=== PATIENT | female | born 1960 | race Caucasian/White ===

== ENCOUNTER → 2017-06-21 | Outpatient (CLI) | payer MEDICAID, OTHER | LOC: BMCIMAGING 14:17 | PROVIDERS: ATTEND Family Medicine | DX: Z13.820 Encounter for screening for osteoporosis (principal); M85.80 Other specified disorders of bone density and structure, unspecified site ==

== ENCOUNTER → 2017-07-18 | Outpatient (CLI) | payer MEDICAID | LOC: FIMAGING 09:58 | PROVIDERS: ATTEND Pain Medicine Interventional Pain Medicine | PROC: CP1 Nuclear Medicine, Musculoskeletal System, Planar Nuclear Medicine Imaging (ICD-10-PCS; principal; 2017-07-18) | DX: G90.59 Complex regional pain syndrome I of other specified site (principal) | CPT/HCPCS: 78315; A9503 ==